=== PATIENT | male | born 1975 | race Caucasian/White ===

== ENCOUNTER 2021-06-02 14:14 | Emergency (ER) | payer MEDICARE, OTHER ==
[~2021-06-02] VITALS: Ht 167.6 cm; Wt 85.0 kg
[~2021-06-02 14:14] MED LIST: CLOZ100T32 PO; DIVA-80 PO; FERR-89 PO; GEMF600T90 PO; LITH300C3 PO; METF-1211 PO; METO25 PO; OMEP20 PO; PRAM0.258 PO
[2021-06-02] MEDS ORDERED: IBUPROFEN 600 MG TABLET PO ONE (22:00)
[2021-06-02] MEDS ORDERED: PERTUSS(ACELL),DIPH,TET VAC/PF 0.5 ML SYRINGE IM. ONE (22:00)
[2021-06-02] MEDS ORDERED: BUPIVACAINE HCL/PF 0.25% 10 ML VIAL PERC ONE (22:00)
[2021-06-02 23:33] VITALS: BP 135/86
== END 2021-06-02 23:45 | disposition home or self-care (01) ==
LOC: EMS 14:35
DX: S91.012A Laceration without foreign body, left ankle, initial encounter (principal); I10 Essential (primary) hypertension; E11.9 Type 2 diabetes mellitus without complications; Z79.84 Long term (current) use of oral hypoglycemic drugs; Z79.899 Other long term (current) drug therapy; W45.8XXA Other foreign body or object entering through skin, initial encounter; Y93.89 Activity, other specified; Y92.89 Other specified places as the place of occurrence of the external cause; Y99.8 Other external cause status
CPT/HCPCS: 12002; 90471; 90715; 99283; J3490

== ENCOUNTER 2021-06-13 11:03 | Emergency (ER) | payer MEDICARE, OTHER ==
[~2021-06-13] VITALS: Ht 167.6 cm; Wt 80.0 kg
[2021-06-13 11:53] VITALS: BP 141/95
[2021-06-13] MEDS ORDERED: HYDROCODONE/ACETAMINOPHEN 5-325 MG TABLET PO ONE (12:15)
[2021-06-13] MEDS ORDERED: CEPHALEXIN MONOHYDRATE 500 MG CAPSULE PO ONE (12:15)
[2021-06-13] MEDS ORDERED: MUPIROCIN CALCIUM 2% 22 GM OINTMENT TP ONE (12:15)
[2021-06-13] MEDS ORDERED: CEPH500C3 PO (12:24)
== END 2021-06-13 12:44 | disposition home or self-care (01) ==
LOC: EMS 11:20
DX: T81.31XA Disruption of external operation (surgical) wound, not elsewhere classified, initial encounter (principal); L03.116 Cellulitis of left lower limb; I10 Essential (primary) hypertension; E11.9 Type 2 diabetes mellitus without complications; Z48.02 Encounter for removal of sutures; Z79.899 Other long term (current) drug therapy; Z79.84 Long term (current) use of oral hypoglycemic drugs
CPT/HCPCS: 99284; Z7502; Z7610